=== PATIENT | female | born 1980 | race Caucasian/White ===

== ENCOUNTER 2017-07-18 06:07 | Day surgery (SDC) | payer OTHER ==
[~2017-07-18] VITALS: Ht 175.3 cm; Wt 174.6 kg
[2017-07-18] VITALS (15 sets, daily range): BP systolic 96–139; BP diastolic 44–86
[~2017-07-18 06:07] MED LIST: ceFAZolin 1gm in D5W 55ml IVP ONE; celeBREX 200mg Cap **SURGERY PATIENTS ONLY ORAL ONE; oxyCONTIN 20mg tab ORAL ONE
--- NOTE | 2017-07-18 06:36 | Operative Note - PDOC ---
Operative Note Operative Note Pre-op Diagnosis: left shoulder impingement/internal derangment Procedure: left shoulder arthroscopy, sad Post-op Diagnosis: same as pre-op plus Operative Findings: consistent w/pre-op dx studies Anesthesia: regional Specimen: none Complications: none Condition: stable Estimated Blood Loss: none Implant(s) used?: No BECCA COONEY Jul 18, 2017 06:36
--- NOTE | 2017-07-18 06:36 | Pre-Procedure Note/Attestation ---
Pre-Procedure Note/Attestation Complete Prior to Procedure Planned Procedure: left Procedure Narrative: shoulder diagnostic arthroscopy, possible sad Indications for Procedure Pre-Operative Diagnosis: left shoulder impingement/internal derangment Attestation I attest that I discussed the nature of the procedure; its benefits; risks and complications; and alternatives (and the risks and benefits of such alternatives ), prior to the procedure, with the patient (or the patient's legal major account representative). I attest that, if there was a reasonable possibility of needing a blood transfusion, the patient (or the patient's legal major account representative) was given the [facility] standardized written summary, pursuant to the [place] Benjy Blood Safety Act ([place] Health and Safety Code # 1645, as amended). I attest that I re-evaluated the patient just prior to the surgery and that there has been no change in the patient's H&P, except as documented below: BECCA COONEY Jul 18, 2017 06:36
[2017-07-18] MEDS ORDERED: Norco 5mg/325mg tab ORAL PRN ×2 (06:45→08:00)
[2017-07-18] MEDS ORDERED: HYDROmorphone 1mg/ml Carpuject SUBQ PRN (06:45)
[2017-07-18] MEDS ORDERED: D5 1/2NS 1,000 ML IV SCH (06:45)
[2017-07-18] MEDS ORDERED: Tylenol #3 tab (300mg/30mg) ORAL PRN ×2 (06:45→08:00)
[2017-07-18] MEDS ORDERED: Ropivacaine 5mg/ml Vial 30ml INJ ONE (07:13)
[2017-07-18] MEDS ORDERED: Bupivacaine w/Epi 0.75% 30ml Vial INJ ONE (07:13)
[2017-07-18] MEDS ORDERED: EPINEPHrine 1mg/1ml Amp ONE (07:13)
[2017-07-18] MEDS ORDERED: Bupivacaine 0.25% Inj 30ml INJ ONE (07:13)
[2017-07-18] MEDS ORDERED: PROPRANOLOL HCL20 MG ORAL (07:29)
[2017-07-18] MEDS ORDERED: ALPRAZOLAM0.5 MG PO (07:29)
[2017-07-18] MEDS ORDERED: ADDERAL20 MG ORAL (07:29)
[2017-07-18] MEDS ORDERED: CELEXA20 MG ORAL (07:29)
[2017-07-18] MEDS ORDERED: Glycopyrrolate 0.2mg/ml 1ml Vial ONE (07:30)
[2017-07-18] MEDS ORDERED: Esmolol 100mg/10ml Inj ONE (07:30)
[2017-07-18] MEDS ORDERED: Neostigmine 1mg/ml 10ml Inj ONE (07:30)
[2017-07-18] MEDS ORDERED: Lidocaine 1% MPF 10mg/ml 5ml ONE ×2 (07:30)
[2017-07-18] MEDS ORDERED: Zemuron 50mg/5ml Inj IV ONE (07:30)
[2017-07-18] MEDS ORDERED: Midazolam 2mg/2ml Inj ONE (07:30)
[2017-07-18] MEDS ORDERED: Succinylcholine 20mg/ml 10ml vial ONE (07:30)
[2017-07-18] MEDS ORDERED: Metoclopramide 10mg/2ml Inj ONE (07:30)
[2017-07-18] MEDS ORDERED: NS Irrig 4000ml IRRIG ONE (07:30)
[2017-07-18] MEDS ORDERED: Propofol 200mg/20ml IV ONE (07:30)
[2017-07-18] MEDS ORDERED: fentaNYL 100 mcg/2 mL IV ONE (07:30)
[2017-07-18] MEDS ORDERED: LR 1000ml ONE (07:30)
--- NOTE | 2017-07-18 07:55 | Anethesia Preoperative Eval ---
Anesthesia Pre-op PMH/ROS General Date of Evaluation: Jul 18, 2017 Time of Evaluation: 07:53 Anesthesiologist: mau ASA Score: ASA 3 Mallampati Score Class I : Soft palate, uvula, fauces, pillars visible Class II: Soft palate, uvula, fauces visible Class III: Soft palate, base of uvula visible Class IV: Only hard plate visible Mallampati Classification: Class III Surgeon: mariola Diagnosis: shoulder pain Surgical Procedure: left houlder dx scope Anesthesia History: none Family History: no anesthesia problems Allergies: Coded Allergies: No Known Allergies (Unverified , 07/18/17) Medications: see eMAR Past Medical History Cardiovascular: Denies: HTN, CAD, [place], valve dz, arrhythmia, other Pulmonary: Denies: asthma, COPD, MORGAN, other Gastrointestinal/Genitourinary: Denies: GERD, CRI, ESRD, other Neurologic/Psychiatric: Reports: depression/anxiety Endocrine: Denies: DM, hypothyroidism, steroids, other HEENT: Denies: cataract (L), cataract (R), glaucoma, [place] (L), [place] (R), other Hematology/Immune: Denies: anemia, DVT, bleeding disorder, other Other: obesity - super morbid PSxH Narrative: tonsillectomy Anesthesia Pre-op Phys. Exam Physician Exam Last Vital Signs Date Time Temp Pulse Resp B/P (MAP) Pulse Ox O2 Delivery O2 Flow Rate FiO2 07/18/17 07:04 97.2 88 19 139/86 98 Room Air Constitutional: NAD Neurologic: CN 2-12 intact Cardiovascular: RRR Respiratory: CTA Gastrointestinal: S/NT/ND Airway Exam Mallampati Score: Class III MO: limited Neck: thick TMD: 1fb ROM: limited Dentures: no upper, no lower Anesthesia Pre-op A/P Labs wnl Urine Test Test 07/18/17 06:20 Urine HCG, Qualitative Negative Studies Pre-op Studies: EKG - sr Risk Assessment & Plan Assessment: denies cp/sob/last panic attack one month ago Plan: general with ISB Pre-Antibiotics Drug: ancef Given Within 1 Hr of Incision: Yes Time Given: 07:40 ADNRES DESHPANDE CRNA Jul 18, 2017 07:55
[2017-07-18] MEDS ORDERED: Metoclopramide 10mg/2ml Inj IVP PRN (08:00)
[2017-07-18] MEDS ORDERED: Hydromorphone 0.5mg/0.5ml inj IVP PRN (08:00)
[2017-07-18] MEDS ORDERED: fentaNYL 100 mcg/2 mL IV PRN (08:00)
[2017-07-18] MEDS ORDERED: Acetaminophen (Non formulary) 100 ML IV ONE (08:00)
[2017-07-18] MEDS ORDERED: LORazepam Inj 2mg/ml 1ml ONE (09:55)
[2017-07-18] MEDS ORDERED: LORazepam Inj 2mg/ml 1ml IV ONE (10:00)
--- NOTE | 2017-07-18 10:30 | Immediate Post-Op Evaluation ---
Immediate Post-Op Evalulation Immediate Post-Op Evalulation Procedure: left shoulder dx scope Date of Evaluation: Jul 18, 2017 Time of Evaluation: 09:30 IV Fluids: 600 Blood Pressure Systolic: 106 Blood Pressure Diastolic: 65 Pulse Rate: 70 Respiratory Rate: 14 O2 Sat by Pulse Oximetry: 99 Temperature (Fahrenheit): 97.8 Pain Score (1-10): 0 Nausea: No Vomiting: No Complications none Patient Status: awake, reacts, patent Hydration Status: adequate Drug: ancef Given Within 1 Hr of Incision: Yes Time Given: 07:30 ANDRES DESHPANDE CRNA Jul 18, 2017 10:30
--- NOTE | 2017-07-18 13:15 | 48 Hour Post Anesthesia Eval ---
Post Anesthesia Evaluation Procedure: left shoulder dx scope Date of Evaluation: Jul 18, 2017 Time of Evaluation: 13:15 Blood Pressure Systolic: 123 0: 83 Pulse Rate: 80 Respiratory Rate: 14 O2 Sat by Pulse Oximetry: 99 Airway: patent Nausea: No Vomiting: No Pain Intensity: 0 Hydration Status: adequate Mental Status/LOC: patient returned to baseline Follow-up Care/Observations: stable Post-Anesthesia Complications: none Follow-up care needed: N/A ANDRES DESHPANDE CRNA Jul 18, 2017 13:15
--- NOTE | 2017-07-18 21:00 | Operative Note - Dictated ---
DATE OF OPERATION: 07/18/2017 PREOPERATIVE DIAGNOSES: 1. Left shoulder internal derangement. 2. Left shoulder traumatic impingement syndrome. POSTOPERATIVE DIAGNOSES: 1. Left shoulder partial articular-sided rotator cuff tear. 2. Traumatic impingement syndrome. 3. Hypertrophic subacromial bursal tissue. PROCEDURES: 1. Left shoulder diagnostic arthroscopy. 2. Left shoulder arthroscopic rotator cuff debridement/repair. 3. Subacromial decompression, bursectomy, and release of the coracoacromial ligament. SURGEON: Olvin Call M.D. ANESTHESIA: Interscalene with general. INDICATION FOR PROCEDURE: The patient is a pleasant female, who has had continued progressive left shoulder pain. She failed conservative treatment. After failing conservative treatment, she elected to undergo left shoulder diagnostic arthroscopy, possible subacromial decompression, bursectomy, and release of the CA ligament. Based on intraoperative findings, further recommendations and procedures may be applicable. Risks, limitations, expectations, and complications of the procedure were discussed in detail. All questions were addressed. DESCRIPTION OF PROCEDURE: An informed consent was obtained, the patient was placed under interscalene general anesthesia. The patient was then carefully placed in the beach chair position. The upper extremities/left shoulder was prepped and draped in a sterile manner. Time-out was performed. A posterolateral skin incision was then made. Trocar was introduced into the glenohumeral joint. There was no significant chondral damage. The anterior labrum appeared to be intact. The biceps anchor along with the biceps was intact. There was some fraying along the anterior margin of the supraspinatus. A medial working portal was established. There was evidence of partial articular-sided rotator cuff tear. Therefore, this tear was debrided down to a stable rim of tissue, represented less than 25% of the rotator cuff. At this point, the camera was repositioned in the subacromial space. There was significant hypertrophic bursal tissue. Acromion was identified along with releasing the CA ligament. Once that was done, acromioplasty was started from lateral to medial and completed from posterior to anterior. Once that was done, the bursal tissue in the posterior aspect of the shoulder was debrided. Once that was completed, the skin was closed using 3-0 Monocryl sutures. Steri-Strips and a sterile dressing were applied. The patient was awoken and taken to recovery room with stable vital signs. ESTIMATED BLOOD LOSS: Minimal. COMPLICATIONS: None. SPECIMENS: None. IMPLANTS: None. Olvin Call M.D. DR: MARK JOB#: [id number] CC: ARCHANA
== END 2017-07-18 13:50 | disposition home or self-care (01) ==
LOC: SUR 06:07
DX: M24.812 Other specific joint derangements of left shoulder, not elsewhere classified (principal); M75.42 Impingement syndrome of left shoulder; M75.52 Bursitis of left shoulder; F41.9 Anxiety disorder, unspecified; F32.9 Major depressive disorder, single episode, unspecified; E66.01 Morbid (severe) obesity due to excess calories; Z68.43 Body mass index [BMI] 50.0-59.9, adult; Z87.891 Personal history of nicotine dependence
CPT/HCPCS: 29826; 29827; 81025; J0171; J0330; J0690; J2250; J2405; J2704; J2710; J2765; J2795; J3010; J3490; J7120; 94003; 94150